=== PATIENT | male | born 1970 | race Hispanic/Latino ===

== ENCOUNTER 2018-08-16 10:23 | Outpatient (CLI) | payer OTHER ==
--- NOTE | 2018-08-16 11:25 | RAD ---
THREE VIEWS RIGHT FOOT: Comparison: None. History: Calcaneal spur with right foot pain. FINDINGS: Three views of the right foot shows no evidence of acute fracture or dislocation. No degenerative rex nges are seen. No calcaneal enthesophytes are seen. IMPRESSION: No evidence of significant right foot abnormality. POS: [facility]
== END 2018-08-16 10:24 | disposition home or self-care (01) ==
LOC: BICRAD 10:23
PROVIDERS: ATTEND Nurse Practitioner Family
DX: M77.31 Calcaneal spur, right foot (principal)